=== PATIENT | male | born 1965 | race Hispanic/Latino ===

== ENCOUNTER 2019-03-12 15:24 | Emergency (ER) | payer OTHER, SELFPAY ==
[2019-03-12] MEDS ORDERED: Acetaminophen 500 MG TAB ONE (16:11)
[2019-03-12] MEDS ORDERED: Ondansetron ODT 4 MG TAB ONE (16:11)
--- NOTE | 2019-03-12 17:02 | CT ---
CT HEAD NONCONTRAST: HISTORY: Trauma. The patient slipped in the bathroom at 1340 hours today and hit the left side of the head. The patient is complaining of nausea. COMPARISON: None. FINDINGS: There is no evidence of a hemorrhage, acute infarction, mass effect, or midline shift. The ventricul ar system is normal in size, shape, and position. No calvarial fracture is seen. There is mild mucosal thickening in the right maxillary antrum. The mastoid air cells are clear. IMPRESSION: No acute intracranial abnormalities demonstrated. POS: [facility]
== END 2019-03-12 17:20 | disposition home or self-care (01) ==
LOC: ERS 15:24
DX: R51 Headache (principal); M25.512 Pain in left shoulder; E11.9 Type 2 diabetes mellitus without complications; F41.9 Anxiety disorder, unspecified; W18.30XA Fall on same level, unspecified, initial encounter
CPT/HCPCS: 70450; Q0162